=== PATIENT | male | born 1970 | race Caucasian/White ===

== ENCOUNTER 2019-05-30 06:08 | Emergency (ER) | payer BC ==
[~2019-05-30] VITALS: Ht 177.8 cm; Wt 105.3 kg
--- NOTE | 2019-05-30 06:30 | PHYS DOC ---
Adult General Chief Complaint Chief Complaint: NEURO SYMPTOMS/DEFICITS HPI HPI 49-year-old male presents via EMS for Code Stroke. Patient's last known well was last night around 9:30 PM. He woke up around 4:30 AM and took a shower and got ready for work. He kissed his jack around 5 AM. At that time he was talking without difficulty. He went downstairs and within several minutes came back up stairs and turned on the bedroom light. The patient's spouse asked him what was going on and he was unable to speak to her. She tells me that he looked pale and concerned. He was making a repetitive cervical motion with his hand. She asked him if he wanted her to call 911 and he nodded yes. The patient has been unable to speak since that time. He was unable to answer questions for EMS. He is following directions. He was found to have right lower facial asymmetry and decreased hand strength on the right. On arrival to the ED, the patient was still unable to speak. He was alert and following commands. Review of Systems Review of Systems Constitutional: Denies fever or chills [] Eyes: Denies change in visual acuity, redness, or eye pain [] HENT: Denies nasal congestion or sore throat [] Respiratory: Denies cough or shortness of breath [] Cardiovascular: No additional information not addressed in HPI [] GI: Denies abdominal pain, nausea, vomiting, bloody stools or diarrhea [] : Denies dysuria or hematuria [] Musculoskeletal: Denies back pain or joint pain [] Integument: Denies rash or skin lesions [] Neurologic: Denies headache, focal weakness or sensory changes [] Endocrine: Denies polyuria or polydipsia [] All other systems were reviewed and found to be within normal limits, except as documented in this note. Physical Exam Physical Exam Constitutional: Well developed, well nourished, no acute distress, non-toxic appearance. [] HENT: Normocephalic, atraumatic, bilateral external ears normal, oropharynx moist, no oral exudates, nose normal. [] Eyes: PERRLA, EOMI, conjunctiva normal, no discharge. [] Neck: Normal range of motion, no tenderness, supple, no stridor. [] Cardiovascular:Heart rate regular rhythm, no murmur [] Lungs & Thorax: Bilateral breath sounds clear to auscultation [] Abdomen: Bowel sounds normal, soft, no tenderness, no masses, no pulsatile masses. [] Skin: Warm, dry, no erythema, no rash. [] Back: No tenderness, no CVA tenderness. [] Extremities: No tenderness, no cyanosis, no clubbing, ROM intact, no edema. [] Neurologic: Alert and oriented X 3, normal motor function, normal sensory function, no focal deficits noted. [] Psychologic: Affect normal, judgement normal, mood normal. [] EKG EKG Sinus rhythm, rate 83, normal axis, no ST elevations or depressions.[] Radiology/Procedures Radiology/Procedures [] Impressions: CT CODE STROKE HEAD WO History: Slurred speech Comparison: July 21, 2013 MRI brain exam and March 29, 2010 CT head exam Technique: Noncontrast CT imaging was performed of the head. Exposure: One or more of the following individualized dose reduction techniques were utilized for this examination: 1. Automated exposure control 2. Adjustment of the mA and/or kV according to patient size 3. Use of iterative reconstruction technique. Findings: No acute intracranial hyperdense hemorrhage is identified. There is no midline shift or intra-axial mass effect. Ventricular size is within normal limits. There is now focus of low density of the posterior right cerebellum about 1.1 cm in size. There is questionable subtle focus of lower density of the left meenakshi, difficult to evaluate given artifact in this region. Impression: 1. There is no evidence of acute intracranial hemorrhage. 2. There is focus of lower density of the posterior right cerebellum new since the previous exams. Features are more suggestive of chronic infarct although could be due to late subacute infarct. There is a questionable subtle focus of lower density of the left meenakshi which could be due to site of more recent ischemia although otherwise difficult to evaluate, better characterized by MRI if clinically needed. Findings discussed with MAGEN BENITEZ at 05/30/2019 7:02 AM. FOR INTERNAL CODING PURPOSES RESULT CODE: (C) Electronically signed by: Michael Hill MD (05/30/2019 7:04 AM) [facility] DICTATED AND SIGNED BY: MICHAEL HILL MD DATE: 05/30/19 0704 CC: MAGEN BENITEZ DO; TAZ PARKER MD ~ CHEST AP ONLY History: Stroke Comparison: None. Findings: Single view of the chest is submitted. There is no dependent pleural fluid or pneumothorax. Heart size is within normal limits. There is mild perihilar opacity. Impression: 1. No lobar infiltrate. There is mild perihilar opacity possible mild central vascular congestion. Electronically signed by: Michael Hill MD (05/30/2019 7:38 AM) [facility] [place] DICTATED AND SIGNED BY: MICHAEL HILL MD DATE: 05/30/19 0738 CC: MAGEN BENITEZ DO; TAZ PARKER MD ~ CTA head and neck History: Slurred speech, right hand weakness, stroke Technique: After bolus of intravenous contrast, volumetric CT data acquisition was acquired of the head and neck. Multiplanar reconstruction images to include MIP and 3-D reconstruction images are submitted. Exposure: One or more of the following individualized dose reduction techniques were utilized for this examination: 1. Automated exposure control 2. Adjustment of the mA and/or kV according to patient size 3. Use of iterative reconstruction technique. Comparison: Head CT the same day Any determination of stenosis is based on NASCET criteria. CTA head: Findings: There is mild motion. There is some venous contamination. Both vertebral arteries constitute the basilar artery, slightly dominant left vertebral artery. There is visualization of segments of bilateral PICAs, left AICA, bilateral superior cerebellar arteries. Right AICA is not well-visualized. There is patent left posterior communicating artery, hypoplastic left A1 segment is not well-visualized more distally. No significant right posterior communicating artery is visualized. Anterior communicating artery is not clearly identified. There is visualization of segments of the anterior, middle, posterior cerebral arteries bilaterally. No focal filling defect is identified of the larger intracranial vessels. No significant intracranial aneurysm is identified. There is small left maxillary sinus mucous retention cyst. Impression: 1. No focal filling defect is identified of the larger intracranial vessels. Right AICA is not well-visualized on this exam although may be small in caliber. Neck CTA: Findings: There is some motion degradation. Visualized distal ascending thoracic aorta is ectatic about 3.9 cm, not fully evaluated. There is a shared origin of the brachiocephalic and left common carotid arteries. No significant stenosis or dissection flap is identified of the cervical arterial vasculature. There is visualization of the cervical vertebral arteries bilaterally. Impression: 1. Exam is somewhat degraded by motion. There is no convincing dissection flap or stenosis of the cervical arterial vasculature. 2. There is ectatic distal ascending thoracic aorta about 3.9 cm, thoracic aorta not fully evaluated. Findings discussed with MAGEN BENITEZ at 05/30/2019 7:46 AM. FOR INTERNAL CODING PURPOSES RESULT CODE: (C) Electronically signed by: Michael Hill MD (05/30/2019 7:46 AM) [facility] DICTATED AND SIGNED BY: MICHAEL HILL MD DATE: 05/30/19 0746 CC: MAGEN BENITEZ DO; TAZ PARKER MD ~ Course & Med Decision Making Course & Med Decision Making Pertinent Labs and Imaging studies reviewed. (See chart for details) Further discussion with the patient's spouse reveals that he appeared to be normal up to 5 AM rather than last night. She states that he was able to get ready to go to work completely on his own. He was speaking at that time. I will consider his last known well to be 5 AM. This places the patient within the window for TPA. His head CT is negative. His initial NIH scale is 8 with significant aphasia. The patient has no history of hemorrhagic stroke. He has no history of bleeding disorders. No recent surgery. He is not on any blood thinners or antiplatelets. I believe the patient has a good candidate for TPA. At 7:20 AM the patient was ordered to be given alteplase. The patient's labs are unremarkable except for slightly elevated creatinine of 1.4. I have no previous for comparison. His troponin is negative. His EKG is unremarkable. The patient's blood pressure has remained within normal limits. Prior to the alteplase, the patient was able to speak. He can answer simple questions with yes, no, and couple of other short words. He appeared to be able to understand everything he was asked. He was just unable to get the words out. This would improve his NIH scale to 6 as he does not appear to have dysarthria. After the alteplase, the patient did not make further significant improvement. I spoke with Dr. Childers and he has accepted the patient for transfer. And admission to the ICU at [facility]. The patient and his family are in agreement with this plan. He will go by ambulance. 43 minutes of critical care time was spent on this patient exclusive of other billable procedures. [] Dragon Disclaimer Dragon Disclaimer This electronic medical record was generated, in whole or in part, using a voice recognition dictation system. NIH Stroke Scale: NIH Stroke Scale Response (Comments) Value Level of Consciousness: 0 Alert/Responsive 0 LOC Questions: 2 Answers neither correct 2 LOC Commands: 0 Performs both tasks 0 Best Gaze: 0 Normal 0 Visual: 0 No visual loss 0 Facial Palsy: 1 Minor paralysis 1 Motor - Left Arm 0 No drift 0 Motor - Right Arm 0 No drift 0 Motor - Left Leg 0 No drift 0 Motor: Right Leg 0 No drift 0 Limb Ataxia: 1 One limb 1 Sensory: 0 No loss 0 Best Language: 2 Severe aphasia 2 Dysathria: 2 Severe 2 Extinction and Inattention: 0 Normal 0 Total 8 Departure Departure: Impression: Primary Impression: Stroke Disposition: 02 XFER SHT-TRM HOSP Condition: STABLE Referrals: TAZ PARKER MD (PCP) Problem Qualifiers Primary Impression: Stroke CVA mechanism: thrombosis Precerebral and cerebral artery: unspecified precerebral artery Qualified Codes: I63.00 - Cerebral infarction due to thrombosis of unspecified precerebral artery MAGEN BENITEZ DO May 30, 2019 06:30
[2019-05-30 06:37] LABS: HEMATOCRIT 44.7 % (39.0-53.0); HEMOGLOBIN 15.2 g/dL (13.0-17.5); RED BLOOD COUNT 4.93 x10^6/uL (4.30-5.70); RED CELL DISTRIBUTION WIDTH 14.1 % (11.5-14.5); WHITE BLOOD COUNT 6.2 x10^3/uL (4.0-11.0)
[2019-05-30 06:50] LABS: BASO # 0.1 x10^3/uL (0.0-0.2); BASO % 1 % (0-3); EOS # 0.1 x10^3/uL (0.0-0.7); EOS % 1 % (0-3); HEMATOCRIT 44.3 % (39.0-53.0); LYMPH # 3.3 x10^3/uL (1.0-4.8); LYMPH % 52 % (24-48); MEAN CORPUSCULAR HEMOGLOBIN 31 pg (25-35); MEAN CORPUSCULAR HGB CONC 34 g/dL (31-37); MEAN CORPUSCULAR VOLUME 91 fL (79-100); MONO # 0.5 x10^3/uL (0.0-1.1); MONO % 9 % (0-9); NEUT # 2.4 x10^3uL (1.8-7.7); NEUT % 38 % (31-73); PLATELET COUNT 243 x10^3/uL (140-400); RED BLOOD COUNT 4.86 x10^6/uL (4.30-5.70); RED CELL DISTRIBUTION WIDTH 14.5 % (11.5-14.5); WHITE BLOOD COUNT 6.3 x10^3/uL (4.0-11.0)
[2019-05-30 06:55] LABS: ALBUMIN 4.5 g/dL (3.4-5.0); ALBUMIN/GLOBULIN RATIO 1.6 (1.0-1.7); CREATININE 1.4 mg/dL (0.7-1.3); GFR 54.1; POTASSIUM 3.9 mmol/L (3.5-5.1); TOTAL BILIRUBIN 0.3 mg/dL (0.2-1.0); TOTAL PROTEIN 7.3 g/dL (6.4-8.2)
[2019-05-30] MEDS ORDERED: IOHEXOL 350 MG/ML 100 ML VIAL. IV ONE (07:00)
--- NOTE | 2019-05-30 07:07 | RAD ---
CT CODE STROKE HEAD WO History: Slurred speech Comparison: July 21, 2013 MRI brain exam and March 29, 2010 CT head exam Technique: Noncontrast CT imaging was performed of the head. Exposure: One or more of the following individualized dose reduction techniques were utilized for this examination: 1. Automated exposure control 2. Adjustment of the mA and/or kV according to patient size 3. Use of iterative reconstruction technique. Findings: No acute intracranial hyperdense hemorrhage is identified. There is no midline shift or intra-axial mass effect. Ventricular size is within normal limits. There is now focus of low density of the posterior right cerebellum about 1.1 cm in size. There is questionable subtle focus of lower density of the left meenakshi, difficult to evaluate given artifact in this region. Impression: 1. There is no evidence of acute intracranial hemorrhage. 2. There is focus of lower density of the posterior right cerebellum new since the previous exams. Features are more suggestive of chronic infarct although could be due to late subacute infarct. There is a questionable subtle focus of lower density of the left meenakshi which could be due to site of more recent ischemia although otherwise difficult to evaluate, better characterized by MRI if clinically needed. Findings discussed with MAGEN BENITEZ at 05/30/2019 7:02 AM. FOR INTERNAL CODING PURPOSES RESULT CODE: (C) Electronically signed by: Deshawn Colon MD (05/30/2019 7:04 AM) [facility]
[2019-05-30] MEDS ORDERED: ALTEPLASE 100 MG IV ONE (07:25)
[2019-05-30] MEDS ORDERED: IV NORMAL SALINE 50ML 50 ML ONE (07:29)
[2019-05-30] MEDS ORDERED: ALTEPLASE 2 MG VIAL INT CAT ONE (07:30)
--- NOTE | 2019-05-30 07:40 | RAD ---
CHEST AP ONLY History: Stroke Comparison: None. Findings: Single view of the chest is submitted. There is no dependent pleural fluid or pneumothorax. Heart size is within normal limits. There is mild perihilar opacity. Impression: 1. No lobar infiltrate. There is mild perihilar opacity possible mild central vascular congestion. Electronically signed by: eDshawn Colon MD (05/30/2019 7:38 AM) [facility]
[2019-05-30] MEDS ORDERED: ALTEPLASE 0 MG IV ONE (07:45)
[2019-05-30] MEDS ORDERED: ALTEPLASE IV ONE (07:45)
[2019-05-30] MEDS ORDERED: ALTEPLASE 0 MG IV SCH (07:45)
[2019-05-30] MEDS ORDERED: IV NORMAL SALINE 50ML 50 ML IV ONE (07:45)
[2019-05-30] MEDS ORDERED: LABETALOL 20 MG/4 ML DISP.SYRIN. IV PRN (07:45)
--- NOTE | 2019-05-30 07:48 | RAD ---
CTA head and neck History: Slurred speech, right hand weakness, stroke Technique: After bolus of intravenous contrast, volumetric CT data acquisition was acquired of the head and neck. Multiplanar reconstruction images to include MIP and 3-D reconstruction images are submitted. Exposure: One or more of the following individualized dose reduction techniques were utilized for this examination: 1. Automated exposure control 2. Adjustment of the mA and/or kV according to patient size 3. Use of iterative reconstruction technique. Comparison: Head CT the same day Any determination of stenosis is based on NASCET criteria. CTA head: Findings: There is mild motion. There is some venous contamination. Both vertebral arteries constitute the basilar artery, slightly dominant left vertebral artery. There is visualization of segments of bilateral PICAs, left AICA, bilateral superior cerebellar arteries. Right AICA is not well-visualized. There is patent left posterior communicating artery, hypoplastic left A1 segment is not well-visualized more distally. No significant right posterior communicating artery is visualized. Anterior communicating artery is not clearly identified. There is visualization of segments of the anterior, middle, posterior cerebral arteries bilaterally. No focal filling defect is identified of the larger intracranial vessels. No significant intracranial aneurysm is identified. There is small left maxillary sinus mucous retention cyst. Impression: 1. No focal filling defect is identified of the larger intracranial vessels. Right AICA is not well-visualized on this exam although may be small in caliber. Neck CTA: Findings: There is some motion degradation. Visualized distal ascending thoracic aorta is ectatic about 3.9 cm, not fully evaluated. There is a shared origin of the brachiocephalic and left common carotid arteries. No significant stenosis or dissection flap is identified of the cervical arterial vasculature. There is visualization of the cervical vertebral arteries bilaterally. Impression: 1. Exam is somewhat degraded by motion. There is no convincing dissection flap or stenosis of the cervical arterial vasculature. 2. There is ectatic distal ascending thoracic aorta about 3.9 cm, thoracic aorta not fully evaluated. Findings discussed with MAGEN BENITEZ at 05/30/2019 7:46 AM. FOR INTERNAL CODING PURPOSES RESULT CODE: (C) Electronically signed by: Deshawn Colon MD (05/30/2019 7:46 AM) [facility]
[2019-05-30] MEDS ORDERED: ALTEPLASE IV SCH (08:15)
[2019-05-30 09:58] VITALS: BP 135/82
--- NOTE | 2019-05-30 12:15 | EKG ---
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
== END 2019-05-30 10:00 | disposition short-term general hospital (02) ==
LOC: ER 06:08
DX: I63.00 Cerebral infarction due to thrombosis of unspecified precerebral artery (principal); R47.81 Slurred speech
CPT/HCPCS: 36415; 37195; 70450; 70496; 70498; 71045; 80053; 84484; 85025; 85027; 85610; 85730; 93005; 99291; G0480; J2997; Q9967

== ENCOUNTER → 2019-07-18 | Outpatient (CLI) | payer BC ==
[2019-07-18 10:14] LABS: ALBUMIN 4.4 g/dL (3.4-5.0); DIRECT BILIRUBIN 0.1 mg/dL (0.0-0.2); TOTAL BILIRUBIN 0.5 mg/dL (0.2-1.0); TOTAL PROTEIN 7.5 g/dL (6.4-8.2)
== END | disposition home or self-care (01) ==
LOC: LAB 09:09
PROVIDERS: ATTEND Psychiatry & Neurology Neurology with Special Qualifications in Child Neurology
DX: I63.89 Other cerebral infarction (principal)
CPT/HCPCS: 36415; 80076; 82550

== ENCOUNTER → 2019-08-09 | Outpatient (CLI) | payer BC | END | disposition home or self-care (01) | LOC: LAB 14:54 | PROVIDERS: ATTEND Psychiatry & Neurology Neurology with Special Qualifications in Child Neurology | DX: R74.8 Abnormal levels of other serum enzymes (principal) | CPT/HCPCS: 36415; 82550 ==

== ENCOUNTER 2019-08-17 16:54 | Emergency (ER) | payer BC ==
[~2019-08-17] VITALS: Ht 177.8 cm; Wt 103.4 kg
[2019-08-17] MEDS ORDERED: PRED20TA PO (17:21)
[2019-08-17] MEDS ORDERED: AMLO5TAB4 PO (17:21)
--- NOTE | 2019-08-17 17:21 | PHYS DOC ---
Past History Past Medical History: High Cholesterol, Hypertension, Other Additional Past Medical Histor: vertigo Past Surgical History: Other Additional Past Surgical Histo: hardware in rt ankle Alcohol Use: None Drug Use: None Adult General Chief Complaint Chief Complaint: ALLERGIC REACTION HPI HPI Patient is a pleasant 49-year-old male who presents to the emergency department for evaluation. He states after eating lunch, at which time he ate some chicken and sweet tea, food he has eaten before, he states that he developed swelling of his left lower lip, as well as some hives and itchiness on his anterior neck, as well as some itchiness to his eyes when he was driving here. He denies any trouble breathing, voice changes, or trouble swallowing. He has a history of a PFO and a small stroke, and had a procedure to close his PFO about 3 weeks ago and is currently on Plavix for 3 months post procedure. He is also on lis inopril. He denies any other medication changes or new medications. Review of Systems Review of Systems Constitutional: Denies fever or chills [] Eyes: Denies change in visual acuity, redness, or eye pain [] HENT: Denies nasal congestion or sore throat [] Respiratory: Denies cough or shortness of breath [] Cardiovascular: The patient denies any shortness of breath, chest pain, palpitations, or orthopnea[] GI: Denies abdominal pain, nausea, vomiting, bloody stools or diarrhea [] : Denies dysuria or hematuria [] Musculoskeletal: Denies back pain or joint pain [] Integument: Denies rash or skin lesions, other than as noted in the history of present illness [] Neurologic: Denies headache, focal weakness or sensory changes [] Endocrine: Denies polyuria or polydipsia [] All other systems were reviewed and found to be within normal limits, except as documented in this note. Allergies Allergies Allergies Coded Allergies Type Severity Reaction Last Updated Verified No Known Drug Allergies 05/30/19 No Physical Exam Physical Exam PHYSICAL EXAM: CONSTITUTIONAL: Well developed, well nourished HEAD: normocephalic, atraumatic EENT: PERRL, EOMI. Conjunctivae normal color, sclerae non-icteric; moist mucous membranes. The oropharynx is unremarkable, there is no edema. The left lower lip is edematous, but nontender, with no erythema. There is no warmth to this area. There is questionable edema noted to the infraorbital area bilaterally. No other abnormalities noted. Voice is normal. There is no stridor. NECK: Supple, non-tender; no meningismus. LUNGS: Lungs CTA, breathing even and unlabored. Normal air movement. HEART: Regular rate and rhythm, no murmur CHEST: No deformity; non-tender ABDOMEN: The abdomen is soft, and non-tender, no masses or bruits. EXTREM: Normal ROM; no deformity, no calf tenderness. Normal pulses palpable in all extremities. There is no pedal edema. SKIN: There are urticarial lesions on the anterior neck, no other rash; no diaphoresis NEURO: Alert; normal speech and cognition; CN's grossly intact; strength grossly intact without focal deficit. BACK: No CVA TTP. Current Patient Data Vital Signs Vital Signs Date Time Temp Pulse Resp B/P (MAP) Pulse Ox O2 Delivery O2 Flow Rate FiO2 08/17/19 17:02 98.2 88 16 96 Room Air EKG EKG [] Radiology/Procedures Radiology/Procedures [] Course & Med Decision Making Course & Med Decision Making Patient's condition remains stable. I discussed diagnostic considerations with the patient. Allergic reaction seems more likely than angioedema, despite the left lower lip involvement, given the urticarial lesions on the neck. However as a precaution I will change the patient's lisinopril, which I instructed him to stop, the [facility] for blood pressure management and discuss importance of close follow-up with his primary care provider. Plavix might cause allergic reactions as well, and I discussed the importance of further outpatient evaluation if symptoms persist. Return precautions were reviewed in detail. Dragon Disclaimer Dragon Disclaimer This electronic medical record was generated, in whole or in part, using a voice recognition dictation system. Departure Departure: Impression: Primary Impression: Allergic reaction Disposition: HOME, SELF-CARE Condition: STABLE Referrals: LATIA MANZANO (PCP) Patient Instructions: Allergies, Generic, Angioedema Additional Instructions: Take Benadryl 25-50 mg every 6 hours for the next 3 days. Use caution as this may cause sedation. Additionally, take Pepcid AC 10 mg twice daily for the next 3 days. This medicine is available [id number]. Use the prescribed steroids as instructed. Return to medical care for any new, or worsening symptoms, the development of shortness of breath, new rash, dizziness lightheadedness, fevers, or any other new, or concerning symptoms. Stop taking lisinopril. Begin taking the new medications instead. Scripts Amlodipine Besylate (NORVASC) 5 Mg Tablet 1 TAB PO DAILY for -, #30 TAB 2 Refills Prov: DEBORA PATTERSON MD 08/17/19 Prednisone (PREDNISONE) 20 Mg Tablet 40 MG PO DAILY for - for 5 Days, #10 TAB Prov: DEBORA PATTERSON MD 08/17/19 DEBORA PATTERSON MD Aug 17, 2019 17:21
[2019-08-17] MEDS ORDERED: predniSONE 20 MG TABLET PO ONE (17:30)
[2019-08-17] MEDS ORDERED: diphenhydrAMINE HCL 25 MG CAPSULE PO ONE (17:30)
[2019-08-17] MEDS ORDERED: FAMOTIDINE 20 MG TABLET PO ONE (17:30)
[2019-08-17 18:14] VITALS: BP 146/111
== END 2019-08-17 18:13 | disposition home or self-care (01) ==
LOC: ER 16:54
DX: T78.40XA Allergy, unspecified, initial encounter (principal); E78.00 Pure hypercholesterolemia, unspecified; I10 Essential (primary) hypertension; K13.0 Diseases of lips; X58.XXXA Exposure to other specified factors, initial encounter
CPT/HCPCS: 99284; J7512; Q0163

== ENCOUNTER 2019-08-19 05:41 | Emergency (ER) | payer BC ==
[~2019-08-19] VITALS: Ht 177.8 cm; Wt 102.0 kg
[~2019-08-19 05:41] MED LIST: AMLO5TAB4 PO; PRED20TA PO
[2019-08-19] MEDS ORDERED: diphenhydrAMINE 50 MG/ML VIAL ONE (05:57)
[2019-08-19] MEDS ORDERED: FAMOTIDINE 20 MG/2 ML VIAL ONE (05:57)
[2019-08-19] MEDS ORDERED: diphenhydrAMINE 50 MG/ML VIAL IVP ONE ×2 (06:15)
[2019-08-19] MEDS ORDERED: IV NORMAL SALINE 1,000ML 1,000 ML IV ONE ×2 (06:15→06:30)
[2019-08-19] MEDS ORDERED: FAMOTIDINE 20 MG/2 ML VIAL IVP ONE ×2 (06:15)
[2019-08-19] MEDS ORDERED: methylPREDNISolone SOD SUCC PF 125 MG/2 ML VIAL. ONE (06:16)
[2019-08-19 06:23] LABS: BASO # 0.1 x10^3/uL (0.0-0.2); BASO % 1 % (0-3); EOS % 0 % (0-3); HEMATOCRIT 50.9 % (39.0-53.0); HEMOGLOBIN 17.2 g/dL (13.0-17.5); LYMPH % 17 % (24-48); MEAN CORPUSCULAR HEMOGLOBIN 30 pg (25-35); MEAN CORPUSCULAR HGB CONC 34 g/dL (31-37); MEAN CORPUSCULAR VOLUME 90 fL (79-100); MONO # 0.8 x10^3/uL (0.0-1.1); MONO % 7 % (0-9); NEUT # 8.6 x10^3uL (1.8-7.7); NEUT % 75 % (31-73); PLATELET COUNT 331 x10^3/uL (140-400); RED BLOOD COUNT 5.67 x10^6/uL (4.30-5.70); RED CELL DISTRIBUTION WIDTH 13.9 % (11.5-14.5); WHITE BLOOD COUNT 11.5 x10^3/uL (4.0-11.0)
--- NOTE | 2019-08-19 06:24 | PHYS DOC ---
Past History Past Medical History: High Cholesterol, Hypertension, Stroke, Other Additional Past Medical Histor: vertigo Past Surgical History: Other Additional Past Surgical Histo: hardware in rt ankle Alcohol Use: None Drug Use: None Adult General Chief Complaint Chief Complaint: ALLERGIC REACTION HPI HPI Patient is a 49 yo m with allergic reaction here two days ago on plavix x one month (had pfo closure was supposed to be on it for three months) had lip swelling got beandryl and steroids yesterday morning was improving then last night got worse now bilateral lip swelling, periorbital swelling. stoped the lisinopril but still on plavix called his project manager finance last night asked him to stop it for now no sob Review of Systems Review of Systems Constitutional: Denies fever or chills [] Eyes: Denies change in visual acuity, redness, or eye pain [] HENT: Denies nasal congestion or sore throat [] Respiratory: Denies cough or shortness of breath [] Cardiovascular: No additional information not addressed in HPI [] Neurologic: Denies headache, focal weakness or sensory changes [] Endocrine: Denies polyuria or polydipsia [] All other systems were reviewed and found to be within normal limits, except as documented in this note. Current Medications Current Medications Current Medications Medications (Trade) Dose Ordered Sig/Whitney Start Time Stop Time Status Last Admin Dose Admin Diphenhydramine HCl (Benadryl) 50 mg 1X ONCE 08/19/19 06:15 08/19/19 06:16 08/19/19 06:05 50 MG Famotidine (Pepcid Vial) 20 mg 1X ONCE 08/19/19 06:15 08/19/19 06:16 08/19/19 06:05 20 MG Sodium Chloride 1,000 ml @ 1,000 mls/hr 1X ONCE 08/19/19 06:30 08/19/19 07:29 Allergies Allergies Allergies Coded Allergies Type Severity Reaction Last Updated Verified lisinopril Allergy Severe 08/19/19 Yes Physical Exam Physical Exam Constitutional: Well developed, well nourished, no acute distress, non-toxic appearance. [] HENT: Normocephalic, atraumatic, bilateral external ears normal, mild swelling upper lip no uvula present no intraoral swelling Eyes: periorbital swelling noted[] Neck: Normal range of motion, no tenderness, supple, no stridor. [] Cardiovascular:mild tachycardia no murmur rubs gallops Lungs & Thorax: Bilateral breath sounds clear to auscultation [] Abdomen: Bowel sounds normal, soft, no tenderness, no masses, no pulsatile masses. [] Skin: urticarial rash on hands groin and axilla and trunk Back: No tenderness, no CVA tenderness. [] Extremities: edema noted hands and feet. Neurologic: Alert and oriented X 3, normal motor function, normal sensory function, no focal deficits noted. [] Psychologic: Affect normal, judgement normal, mood normal. [] Current Patient Data Vital Signs Vital Signs Date Time Temp Pulse Resp B/P (MAP) Pulse Ox O2 Delivery O2 Flow Rate FiO2 08/19/19 05:41 97.6 129 18 95 Room Air EKG EKG [] Radiology/Procedures Radiology/Procedures [] Course & Med Decision Making Course & Med Decision Making * Pertinent Labs and Imaging studies reviewed. (See chart for details) []Patient remained stable in the emergency room after treatment above. Heart rate did come down he said he felt a little better airway remained patent. I recommended he discontinue the Plavix speak with his project manager finance today about an ongoing treatment plan I did note that the CK improved the creatinine is normal blood pressure is normal I think he is safe for outpatient management continue medications prescribed by previous emergency physician. For now do not take lisinopril or Plavix follow-up with project manager finance patient is agreeable to the plan Dragon Disclaimer Dragon Disclaimer This electronic medical record was generated, in whole or in part, using a voice recognition dictation system. Departure Departure: Impression: Primary Impression: Allergic reaction Disposition: HOME, SELF-CARE Condition: STABLE Referrals: LATIA MANZANO (PCP) MAYUR RICH MD Aug 19, 2019 06:24
[2019-08-19 06:28] LABS: ALBUMIN 4.4 g/dL (3.4-5.0); ALBUMIN/GLOBULIN RATIO 1.3 (1.0-1.7); CALCIUM 8.8 mg/dL (8.5-10.1); CREATININE 1.3 mg/dL (0.7-1.3); GFR 58.9; POTASSIUM 3.8 mmol/L (3.5-5.1); TOTAL BILIRUBIN 0.6 mg/dL (0.2-1.0); TOTAL PROTEIN 7.9 g/dL (6.4-8.2)
[2019-08-19] MEDS ORDERED: methylPREDNISolone SOD SUCC PF 125 MG/2 ML VIAL. IV ONE (06:30)
[2019-08-19 06:51] VITALS: BP 129/75
== END 2019-08-19 07:33 | disposition home or self-care (01) ==
LOC: ER 05:41
DX: T78.40XA Allergy, unspecified, initial encounter (principal); E78.00 Pure hypercholesterolemia, unspecified; I10 Essential (primary) hypertension; Z86.73 Personal history of transient ischemic attack (TIA), and cerebral infarction without residual deficits; Z88.8 Allergy status to other drugs, medicaments and biological substances; X58.XXXA Exposure to other specified factors, initial encounter
CPT/HCPCS: 36415; 80053; 82550; 85025; 96374; 96375; 99284; J1200; J2930; J3490; 96361; J7030

== ENCOUNTER 2019-08-21 13:45 | Emergency (ER) | payer BC ==
[~2019-08-21] VITALS: Ht 177.8 cm; Wt 102.0 kg
[2019-08-21] MEDS ORDERED: diphenhydrAMINE 50 MG/ML VIAL ONE (13:49)
[2019-08-21] MEDS ORDERED: methylPREDNISolone SOD SUCC PF 125 MG/2 ML VIAL. ONE (13:50)
[2019-08-21] MEDS ORDERED: FAMOTIDINE 20 MG/2 ML VIAL ONE (13:50)
[2019-08-21 14:22] VITALS: BP 122/74
--- NOTE | 2019-08-21 14:22 | PHYS DOC ---
Past History Past Medical History: High Cholesterol, Hypertension, Stroke, Other Additional Past Medical Histor: vertigo Past Surgical History: Other Additional Past Surgical Histo: hardware in rt ankle Alcohol Use: None Drug Use: None Adult General Chief Complaint Chief Complaint: ALLERGIC REACTION HPI HPI Patient is a 49-year-old male, familiar to me from a prior ER visit, who presents to the emergency department for evaluation of itching on the back of his neck and scalp, along with his upper neck. He is familiar to me from an ER visit last week, when I saw him for an allergic reaction which was thought to be due either to his Plavix or lisinopril, his lisinopril was discontinued, but the patient returned the following day with persistent itching, and his Plavix was thus discontinued and changed to Brillinta. However, the patient states that his symptoms seemed to improve for a bit and then he will get recurrence of his itchiness, and some hives. He states he is taking the steroids, and antihistamines as recommended, and has been using some steroid cream as well without improvement. He DENIES any occurrence of swelling in his face or lips, or any shortness of breath at this time. He denies any dizziness or lightheadedness. There are no alleviating or exacerbating factors to his symptoms otherwise Review of Systems Review of Systems Constitutional: Denies fever or chills [] Eyes: Denies change in visual acuity, redness, or eye pain [] HENT: Denies nasal congestion or sore throat [] Respiratory: Denies cough or shortness of breath [] Cardiovascular: The patient denies any shortness of breath, chest pain, palpitations, or orthopnea [] GI: Denies abdominal pain, nausea, vomiting, bloody stools or diarrhea [] : Denies dysuria or hematuria [] Musculoskeletal: Denies back pain or joint pain [] Integument: Denies rash or skin lesions , other than as noted in the history of present illness[] Neurologic: Denies headache, focal weakness or sensory changes [] Endocrine: Denies polyuria or polydipsia [] All other systems were reviewed and found to be within normal limits, except as documented in this note. Current Medications Current Medications Current Medications Medications (Trade) Dose Ordered Sig/Whitney Start Time Stop Time Status Last Admin Dose Admin Diphenhydramine HCl (Benadryl) 50 mg STK-MED ONCE 08/21/19 13:49 08/21/19 13:50 DC Famotidine (Pepcid Vial) 20 mg STK-MED ONCE 08/21/19 13:50 08/21/19 13:50 DC Methylprednisolone Sodium Succinate (SOLU-Medrol 125MG VIAL) 125 mg STK-MED ONCE 08/21/19 13:50 08/21/19 13:50 DC Allergies Allergies Allergies Coded Allergies Type Severity Reaction Last Updated Verified lisinopril Allergy Severe 08/19/19 Yes Physical Exam Physical Exam PHYSICAL EXAM: CONSTITUTIONAL: Well developed, well nourished HEAD: normocephalic, atraumatic EENT: PERRL, EOMI. Conjunctivae normal color, sclerae non-icteric; moist mucous membranes. NECK: Supple, non-tender; no meningismus. There is no stridor. Voice is normal. LUNGS: Lungs CTA, breathing even and unlabored. Normal air movement. There are no wheezes. HEART: Regular rate and rhythm, no murmur CHEST: No deformity; non-tender ABDOMEN: The abdomen is soft, and non-tender, no masses or bruits. EXTREM: Normal ROM; no deformity, no calf tenderness. Normal pulses palpable in all extremities. There is no pedal edema. SKIN: There are a few scattered urticarial lesions on the posterior neck, and upper chest, no other rash; no diaphoresis NEURO: Alert; normal speech and cognition; CN's grossly intact; strength grossly intact without focal deficit. BACK: No CVA TTP. EKG EKG [] Radiology/Procedures Radiology/Procedures [] Course & Med Decision Making Course & Med Decision Making Patient was observed in the emergency department and remains a stable. I discussed expectant management, and continued compliance with the recommended medications, the need for close PCP follow-up and return precautions. Patient has PCP appointment scheduled for tomorrow. He has one more day left on his steroids, which is tomorrow. Dragon Disclaimer Dragon Disclaimer This electronic medical record was generated, in whole or in part, using a voice recognition dictation system. Departure Departure: Impression: Primary Impression: Allergic reaction Disposition: 01 HOME, SELF-CARE Condition: STABLE Referrals: LATIA MANZANO (PCP) Patient Instructions: Allergies, Generic DEBORA PATTERSON MD Aug 21, 2019 14:22
== END 2019-08-21 15:11 | disposition home or self-care (01) ==
LOC: ER 13:45
DX: T78.40XD Allergy, unspecified, subsequent encounter (principal); I10 Essential (primary) hypertension; E78.00 Pure hypercholesterolemia, unspecified; Z86.73 Personal history of transient ischemic attack (TIA), and cerebral infarction without residual deficits; Z88.8 Allergy status to other drugs, medicaments and biological substances; X58.XXXD Exposure to other specified factors, subsequent encounter
CPT/HCPCS: 99284

== ENCOUNTER → 2019-09-19 | Outpatient (CLI) | payer BC ==
[2019-08-21 14:22] VITALS: BP 122/74
== END | disposition home or self-care (01) ==
LOC: LAB 15:41
PROVIDERS: ATTEND Psychiatry & Neurology Neurology with Special Qualifications in Child Neurology
DX: R74.8 Abnormal levels of other serum enzymes (principal)
CPT/HCPCS: 36415; 82550

== ENCOUNTER → 2021-09-10 | Outpatient (CLI) | payer BC ==
--- NOTE | 2021-09-10 17:42 | RAD ---
EXAM: Abdomen, 2 views. HISTORY: Pain. COMPARISON: None. FINDINGS: 2 views of the abdomen are obtained. There is a small amount of gas within the small and la rge bowel and the stomach. There is no evidence of bowel obstruction. There is no free air. IMPRESSION: Nonobstructive bowel gas pattern. Electronically signed by: Ciara Bolivar MD (09/10/2021 5:40 PM) [id number]
== END ==
LOC: RAD 16:55
PROVIDERS: ATTEND Physician Assistant
DX: R10.33 Periumbilical pain (principal)
CPT/HCPCS: 74019